=== PATIENT | male | born 1930 | race African-American/Black ===

== ENCOUNTER 2018-01-10 17:29 | Inpatient (IN) | payer MEDICARE, SELFPAY ==
[~2018-01-10 17:29] MED LIST: ISOVUE-370 76%-LOCM 1 ML ONE
[2018-01-10 18:00] LABS: #Eosinphils 0.1 thou/uL (0.0-0.7); #Lymphocytes 1.2 thou/uL (1.20-3.40); #Monocytes 0.8 thou/uL (0.11-0.59); #Neutrophils 9.4 thou/uL (1.40-6.50); %Eosinophils 0.7 % (0.0-10.0); %Lymphocytes 10.6 % (21.0-51.0); %Neutrophils 81.7 % (42.0-75.0); Hemoglobin 11.1 g/dL (14.0-18.0); Mean Corpuscular HGB CONC 30.5 g/dL (32.0-36.0); Mean Corpuscular Volume 91.7 fL (78.0-98.0); Mean Platelet Volume 10.5 fL (7.4-10.4); Platelet Count 306 thou/uL (130-400); RBC Distribution Width 16.8 % (11.5-14.5); Red Blood Cell (RBC) Count 3.96 mill/uL (4.70-6.10); White Blood Cell (WBC) Count 11.5 thou/uL (4.8-10.8)
[2018-01-10 18:06] LABS: INR-International Normal Ratio 1.2; Prothrombin Time 15.5 SEC (12.0-14.7)
[2018-01-10 18:13] LABS: Base Excess-Venous -3.9 mmol/L (0 (+/- 2.5)); Bicarbonate (HCO3v) 20.7 mmol/L (1.0-85.0); CO2 Tension (PvCO2) 35.8 mmHg (41.0-51.0); Calcium, Ionized 1.08 mmol/L (1.12-1.32); O2 Tension (PvO2) 138.3 mmHg (35.0-45.0); Potassium 6.4 mmol/L (3.4-4.7); T. Carbon Dioxide 21.8 mmol/L (1.0-85.0); pH (Venous) 7.371 (7.35-7.45); vO2 Saturation-calc 99.1 % (94-98)
[2018-01-10 18:18] LABS: Actual Bicarbonate (HCO3a) 21.7 mEq/L (22-28); Base Excess (BEa) -2.4 mEq/L (-2.0 to +3.0); CO2 Tension 34.7 mmHg (35.0-45.0); Carboxyhemoglobin (COHb) 0.3 gm% (0.0-3.0); Hemoglobin (Hb) 11.5 g/dL (14.0-18.0); O2 Tension (PaO2) 97.5 mmHg (> 60.0); pH, Arterial 7.41 (7.35-7.45)
[2018-01-10 18:19] LABS: Analyzer IN Cardio ER; Calcium, Ionized 1.15 mmol/L (1.12-1.30); Potassium - ABG Lab 4.34 mmol/L (3.70-5.30); Puncture Site RBA
[2018-01-10 18:20] LABS: ALV-art Gradient 215.625 (0-20)
[2018-01-10 18:39] LABS: Bilirubin Negative (Negative); Blood, Urine Small (Negative); Clarity CLEAR (Clear); Glucose, Urine (Dipstick) Negative (Negative); Leukocyte Moderate (Negative); Nitrite Negative (Negative); Protein, Urine (Dipstick) 30 mg/dL (Neg-Trace)
[2018-01-10] MEDS ORDERED: Propofol 1,000 MG/100 ML VIAL IV ONE (18:45)
[2018-01-10 18:47] LABS: Amphetamine Not Detected (NotDetected); Bacteria/HPF 1+ HPF (None Seen); Barbiturates Screen Not Detected (NotDetected); Benzodiazepine Screen Not Detected (NotDetected); Cocaine Metabolite Screen Not Detected (NotDetected); Hyaline Casts/LPF 0-3 HYALINE CAST LPF (0-3 Hyaline); Medtox Control Line Valid? VALID (VALID); Medtox Reader # READER 1; Methadone Not Detected (NotDetected); Methamphetamine Not Detected (NotDetected); Opiate Screen Detected (NotDetected); Oxycodone Screen Not Detected (NotDetected); Phencyclidine (PCP) Not Detected (NotDetected); Squamous Epithelial None Seen HPF (0-3); THC/Cannabinoid Screen Not Detected (NotDetected); Tricyclic Screen Not Detected (NotDetected); WBC/HPF 21-50 HPF (0-3)
[2018-01-10 19:06] LABS: ALT (SGPT) 21 U/L (8-55); AST (SGOT) 29 U/L (5-34); Acetaminophen Less than 6.0 mcg/mL (10.0-30.0); Albumin 3.3 g/dL (3.4-4.8); Alcohol Less than 10 mg/dL (Less than 10); Alkaline Phosphatase 125 U/L (40-150); Anion Gap 16 mmol/L (10-20); BUN (Urea Nitrogen) 26 mg/dL (8.4-25.7); Bilirubin, Total 0.7 mg/dL (0.2-1.2); Calc. Creatinine Clearance 0 mL/min (70-130); Calcium 8.9 mg/dL (7.8-10.44); Carbon Dioxide 18 mmol/L (23-31); Chloride 104 mmol/L (98-107); Estimated GFR-MDRD 30; Globulin 5.4 g/dL (2.4-3.5); Glucose 107 mg/dL (83-110); Lipase 33 U/L (8-78); Potassium 4.6 mmol/L (3.5-5.1); Protein, Total 8.7 g/dL (5.8-8.1); Salicylate Less than 8.0 mg/dL (15.0-30.0); Sodium 133 mmol/L (136-145)
[2018-01-10 19:10] LABS: CKMB 2.1 ng/mL (0-6.6); Troponin I 0.028 ng/mL (< 0.028)
[2018-01-10 19:14] LABS: Magnesium 1.9 mg/dL (1.6-2.6)
[2018-01-10] MEDS ORDERED: cefTRIAXone\\ROCEPHIN 1 GM VIAL ONE (19:16)
[2018-01-10] MEDS ORDERED: Sodium Chloride 0.9% 100 ML ONE (19:16)
[2018-01-10] MEDS ORDERED: Fentanyl 100 MCG/2 ML VIAL ONE ×2 (19:38→20:37)
[2018-01-10] MEDS ORDERED: Piperacillin/Tazobactam 4.5 GM VIAL ONE (19:38)
--- NOTE | 2018-01-10 19:44 | CT ---
CT BRAIN NONCONTRAST: 01/10/2018 5:40 p.m. HISTORY: An 87-year-old male with global deficits, down for an hour before EMS was called. This stroke alert protocol report was called to the scribe working for Dr. Anaya (who is currently d oing a procedure and is unable to speak on the telephone, at 6:08 p.m. on 01/10/2018). FINDINGS: There is no midline shift or any other mass effect. There is no evidence of acute intracranial hemor rhage, obstructive hydrocephalus, or extraaxial fluid collection. The calvarium is intact. There is diffuse parenchymal volume loss. There are low attenuation areas in the white matter. These are no nspecific, but in a patient of this age, they are probably chronic ischemic white matter changes due to microvascular atherosclerosis. 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 There is fluid in the nasopharyngeal airway. IMPRESSION: 1) No acute intracranial findings. 2) Involutional changes and chronic ischemic white matter changes. 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 CODE CR jn [] POS: MEG
--- NOTE | 2018-01-10 19:47 | RAD ---
CHEST ONE VIEW: History: Altered mental status. Comparison: 11-24-17 FINDINGS: Nasogastric tube is approximately 1 cm above the rena. Nasogastric tube extends to the level of the thoracic esophagus. Advancement is recommended. There is atherosclerosis of the aorta. Left sided tr ansvenous pacemaker terminates over the region of the right atrium and right ventricle. Pulmonary ves sels are within normal limits. Interstitial opacities are felt to be chronic. No pneumothorax or osse ous abnormalities. IMPRESSION: NG tube and ET tube as above. Repositioning is recommended. Results of study discussed with Dr. Frantz Anaya 01-11-16 at 6:15 p.m. POS: PPP
--- NOTE | 2018-01-10 19:50 | CT ---
CT CERVICAL SPINE WITHOUT CONTRAST: HISTORY: The patient was found down. COMPARISON: None. FINDINGS: There is fluid in the aerodigestive tract, likely due to recent endotracheal tube placement. The vis ualized soft tissue neck structures are unremarkable. There is no prevertebral soft tissue swelling. There are varying degrees of central canal stenosis and foraminal narrowing, on the basis of degene rative change. The upper mediastinum and lung apices are unremarkable. There is no craniocervical dissociation. There is degenerative change in the atlantoaxial articulati on with some pannus and soft tissue prominence, likely on the basis of arthritic change. The lateral masses of C1 and C2, as well as the facets, have appropriate articulation. There is multilevel degenerative change with loss of disk space height, osteophyte formation, and end plate irregularity. [id number], cervical spine vertebral body height is maintained. There is no evidence of fracture. Straightening of normal cervical lordosis is presumed to be due to patient po sition, muscle spasm, or a cervical collar. The current study does not assess for ligamentous injury . IMPRESSION: 1. No evidence of cervical spine fracture. 2. Straightening of normal cervical lordosis, as above. If there is concern for ligamentous injury, consider magnetic resonance imaging. POS: PPP
--- NOTE | 2018-01-10 20:18 | RAD ---
CHEST ONE VIEW: History: Evaluate ET tube and nasogastric tube. Comparison: 01-10-18 FINDINGS: Interval repositioning of the endotracheal tube which is now 5 cm above the rena. Nasogastric tube still appears to terminate in the distal thoracic esophagus. IMPRESSION: 1. Appropriate positioning of the endotracheal tube. 2. Nasogastric tube still appears to be thoracic esophagus. POS: PPP
--- NOTE | 2018-01-10 21:08 | CT ---
CT ANGIOGRAM CHEST: HISTORY: Unresponsive patient. COMPARISON: None. TECHNIQUE: A CT angiogram of the chest was performed in the axial plane. Three-dimensional reformatted images a re submitted for interpretation. FINDINGS: Endotracheal tube terminates above the rena. There is nonspecific debris at the rena. The trach ea and central bronchi appear to be patent. The nasogastric tube terminates in the thoracic esophagu s. Heart size is within normal limits. A small amount of pericardial fluid is noted. The thoracic aorta and upper abdominal aorta have a normal caliber. No periaortic fat stranding. The visualized upper solid organs are unremarkable. There is consolidation in the left lower lobe. Dependent atelectatic changes in the right lower lobe . Nonspecific focal opacity, measuring approximately 1 cm, in the right lower lobe has a somewhat ir regular appearance and may represent an area of scar, atelectasis, or even infiltrate. A small nodul e, measuring approximately 1.8 cm in craniocaudal dimension, is a consideration, though is less favor ed, given that this density does abut the minor fissure. Areas of scar and atelectasis are favored. Adequate contrast opacification in the pulmonary arterial system, to the level of the segmental arter ies. No filling defect to suggest thromboembolism. No lytic or blastic lesions in the osseous structures. IMPRESSION: 1. Limited evaluation of the pulmonary arterial system due to the timing of bolus. No evidence of p ulmonary artery embolism to the level of the lobar arteries. 2. Probable areas of atelectasis or infiltrate involving both lower lobes. 3. Endotracheal tube as above. There is debris in the rena, nonspecific. 4. Nasogastric tube as above. Advancement is recommended, such that the nasogastric tube is in the stomach. The results of the study were discussed with Dr. Frantz Anaya on 01/10/2018 at 8:28 p.m. CODE CR POS: PPP
--- NOTE | 2018-01-10 21:23 | CT ---
ABDOMEN CT WITH CONTRAST: PELVIS CT WITH CONTRAST: HISTORY: Unresponsive patient. COMPARISON: None. TECHNIQUE: Post contrast abdomen CT is performed in the axial plane. Coronal reformatted images are submitted. FINDINGS: Changes in the lung bases as described in the CT angiogram report. The liver, spleen, pancreas, and adrenal glands have appropriate enhancement. Subtle hyperdensity in the gallbladder may represent stones or debris. No CT evidence of cholecystit is. Symmetric enhancement of the kidneys. Bilaterally, no obstructive uropathy. No gastrohepatic, retrocrural, or periportal lymphadenopathy. No mesenteric mass, lymphadenopathy, free air, or free fluid. Limited evaluation of the alimentary canal due to lack of oral contrast. The gastric mucosa, the duo denum, and multiple normal caliber small bowel loops are noted. The ileocecal junction is unremarkab le. Normal caliber appendix. The colon is grossly unremarkable. There is some fecal material in th e sigmoid colon and rectum. Findings are nonspecific. Symmetric attenuation of the psoas muscles. PELVIS: A Mondragon catheter is in the urinary bladder. No pelvic mass, lymphadenopathy, free air, or f ree fluid. No lytic or blastic lesions in the osseous structures. IMPRESSION: No acute abnormality in the abdomen or pelvis. The results of the study were discussed with Dr. Frantz Anaya on 01/10/2018 at 8:33 p.m. CODE CR POS: PPP
--- NOTE | 2018-01-10 21:26 | PDOC.FPRHP ---
- History of Present Illness Chief Complaint: AMS, intubated History of Present Illness: Pt unable to provide history, gather from EMS, ER, and medical records Mr. Graham was doing well per family 1 hour before he was found unresponsive outside, after remaining unresponsive for another hour EMS was called and gave him 4mg of narcan and intubation in the field. Scant history from family includes Diabetes. ED Course: Pt has remained unresponsive during his time in ED, O2 sats ok, work up included sepsis, toxins, metabolic, thyroid, PR, cerebral bleed, seizure, glucose, UA, ABG. UDS postive for opiates, some bacteria in urine - Allergies/Adverse Reactions Allergies Allergy/AdvReac Type Severity Reaction Status Date / Time No Known Allergies Allergy Unverified 01/10/18 22:30 - History PMHx:diabetes, CKDIV, PE, hypertension PSHx: R knee replacement, R L amputation, port placed, pacemaker FHx: unknown Social: known - Review of Systems ROS unobtainable: due to mental status - Vital signs BP: [162/94] HR: [116] RR: [14] Tmax: [98.7] Pox: [100]% on [vent] Wt: [58.6kg ] - Physical Exam Constitutional: other (intubated, unresponsive to stimulation) HEENT: normocephalic and atraumatic, conjunctiva clear, MMM, other (pupils pinpoint and non reactive) Neck: supple, trachea midline, no bruits Chest: no lesions Heart: RRR, normal S1/S2, pulses present, no edema Lungs: CTAB, no respiratory distress, other (on ventilator) Abdomen: soft, no masses/distention Musculoskeletal: normal structure, other (dorsiflexion of right foot present) Neurological: other (GCS 5) Skin: no rash/lesions Heme/Lymphatic: no unusual bruising or bleeding, no petechia FMR H&P: Results - Labs Result Diagrams: 01/10/18 17:48 01/10/18 18:39 Lab results: WBC 11.5 thou/uL (4.8-10.8) H 01/10/18 17:48 Hgb 11.1 g/dL (14.0-18.0) L 01/10/18 17:48 Hct 36.3 % (42.0-52.0) L 01/10/18 17:48 MCV 91.7 fL (78.0-98.0) 01/10/18 17:48 Plt Count 306 thou/uL (130-400) 01/10/18 17:48 Neutrophils % 81.7 % (42.0-75.0) H 01/10/18 17:48 ABG pH 7.41 (7.35-7.45) 01/10/18 18:09 ABG pCO2 34.7 mmHg (35.0-45.0) L 01/10/18 18:09 ABG pO2 97.5 mmHg (> 60.0) H 01/10/18 18:09 VBG pCO2 35.8 mmHg (41.0-51.0) L 01/10/18 18:09 VBG pO2 138.3 mmHg (35.0-45.0) H 01/10/18 18:09 Sodium 133 mmol/L (136-145) L 01/10/18 18:39 Potassium 4.6 mmol/L (3.5-5.1) 01/10/18 18:39 Chloride 104 mmol/L (98-107) 01/10/18 18:39 Carbon Dioxide 18 mmol/L (23-31) L 01/10/18 18:39 BUN 26 mg/dL (8.4-25.7) H 01/10/18 18:39 Creatinine 2.13 mg/dL (0.6-1.3) H 01/10/18 18:39 Glucose 107 mg/dL (83-110) 01/10/18 18:39 Lactic Acid 1.6 mmol/L (0.5-2.2) 01/10/18 17:59 Calcium 8.9 mg/dL (7.8-10.44) 01/10/18 18:39 Total Bilirubin 0.7 mg/dL (0.2-1.2) 01/10/18 18:39 AST 29 U/L (5-34) 01/10/18 18:39 ALT 21 U/L (8-55) 01/10/18 18:39 Alkaline Phosphatase 125 U/L (40-150) 01/10/18 18:39 Creatine Kinase 42 U/L (30-200) 01/10/18 18:39 CK-MB (CK-2) 2.1 ng/mL (0-6.6) 01/10/18 18:39 Serum Total Protein 8.7 g/dL (5.8-8.1) H 01/10/18 18:39 Albumin 3.3 g/dL (3.4-4.8) L 01/10/18 18:39 Lipase 33 U/L (8-78) 01/10/18 18:39 Urine Ketones Negative mg/dL (Negative) 01/10/18 18:19 Urine Blood Small (Negative) H 01/10/18 18:19 Urine Nitrite Negative (Negative) 01/10/18 18:19 Ur Leukocyte Esterase Moderate (Negative) H 01/10/18 18:19 Urine RBC 4-6 HPF (0-3) 01/10/18 18:19 Urine WBC 21-50 HPF (0-3) H 01/10/18 18:19 Ur Squamous Epith Cells None Seen HPF (0-3) 01/10/18 18:19 Urine Bacteria 1+ HPF (None Seen) H 01/10/18 18:19 FMR H&P: A/P - Problem List (1) Altered mental status Current Visit: Yes Status: Acute Code(s): R41.82 - ALTERED MENTAL STATUS, UNSPECIFIED (2) Leukocytosis Current Visit: Yes Status: Acute Code(s): D72.829 - ELEVATED WHITE BLOOD CELL COUNT, UNSPECIFIED (3) Bacteria in urine Current Visit: Yes Status: Acute Code(s): R82.71 - BACTERIURIA (4) Opiate drug detected in blood Current Visit: Yes Status: Acute Code(s): R78.1 - FINDING OF OPIATE DRUG IN BLOOD - Plan 1. Altered mental status - unknown cause: brain bleed, metabolic, toxin, trauma, seizure, and PE are unlikely - MRI to evaluate for ischemic stroke - begin ASA and plavix therapy, pt not a candidate for TPN - possibly alread on anticoagulation per previous hospital records - LP to evaluate for infection/inflammation - attempt to obtain more history from family 2. Leukocytosis - likely 2/2 abnormal urine - possibly source for sepsis - IV NS 100 ml/hr 3. Bacteria in urine - possible source of sepsis - IV Vanc and Zosyn 4. Blood test positive for opiates - no response to narcan in the field - IV fluids Disposition/LOS: monitor in CCU, continue to work up for possible causes FMR H&P: Upper Level - Pertinent history Patient unresponsive. No witnesses present. HPI taken from ER records. 87M who was apparently found to be altered for 1 hour and took another hour before family had EMS arrive. Narcan and intubation was performed prior to admission. Patient has lab work up done but with no definitive reason for his AMS. Differential is broad including sepsis, toxins, metabolic, endocrine, PR, seizure. Previous ER visit note PMHx of HTN, hx of PE, DM2, leg amputation 1 month prior( May have been done at [facility]) - Pertinent findings Gen: Intubated HEENT: No trauma noted. Pupil appear to be fixed and non reacative to light. Moist mucosal membrane Resp: CTA. CV: RRR with no apparent m/g/r. There is a port, unclear the significance. GI: No distention Derm: no obvious wound. Skin warm and dry. Neuro: Intubated, not responsive, no withdrawal from pain. - Plan Date/Time: 01/10/182123 I, [Ramone Martinez], have evaluated this patient and agree with findings/plan as outlined by chemist internship resident. Pertinent changes/additions are listed here. 1. AMS - Broad dx at this time. Consider sepsis, seizure, stroke/hypoxia, endocrine at this time - Unlikely DM2 related with normal glucose. CTA done not finding PE. Trops negative. No obvious trauma. - Is currently on broad abx, culture pending. Prolactin mildly elevated. May consider EEG in future. MRI will be done to rule out stroke. Intubated at this time and with good O2 saturation of 100%. Will obtain morning cortisol and TSH. 2. Sepsis - WBC elevated, tachycardia, possible urine infection - UA shows wbc 21-50, 1+ bacteria, moderate leukocyte esterase. Continue vanc/ zosyn. Await culture. 3. DM2 - At this time, will start SSI. Unknown his home medication. Will try to contact family in morning. 4. 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 Unclear if this is chronic vs acute. - Reevaluate with morning lab. Current receiving IV fluid 5. Normocytic anemia - Mild anemia. Will monitor. Unlikely to be etiology of his AMS 6. UDS with opiate - Likely from intubation in field. No obvious toxins.
[2018-01-10] MEDS ORDERED: Ondansetron ODT 4 MG TAB SL PRN (22:31)
[2018-01-10] MEDS ORDERED: Ondansetron HCl/PF 4 MG/2 ML Vial IVP PRN (22:31)
[2018-01-10] MEDS ORDERED: Acetaminophen 325 MG TAB PO PRN (22:31)
[2018-01-10] MEDS ORDERED: DISCONTINUE PREVIOUS NARCOTIC PAIN MEDICATIONS AND BENZODIAZEPINES FS SCH ×2 (22:32→23:19)
[2018-01-10] MEDS ORDERED: Lorazepam 2 MG/ML VIAL SLOW IVP PRN ×2 (22:32→23:19)
[2018-01-10] MEDS ORDERED: Propofol BOLUS 1,000 MG/100 ML VIAL IV PRN ×2 (22:32→23:19)
[2018-01-10] MEDS ORDERED: fentaNYL Citrate/PF 2,000 MCG in Sodium Chloride 0.9% 60 ML IV SCH ×2 (22:32→23:19)
[2018-01-10] MEDS ORDERED: Propofol 1,000 MG/100 ML VIAL IV PRN ×2 (22:32→23:19)
[2018-01-10] MEDS ORDERED: Fentanyl BOLUS 250 ML IVPB PRN ×2 (22:32→23:19)
[2018-01-10] MEDS ORDERED: Labetalol HCl 100 MG/20 ML VIAL SLOW IVP PRN (22:34)
[2018-01-10 22:45] VITALS: BMI 19.8
[2018-01-10] MEDS ORDERED: [UNRECOGNIZED DRUG - REMARK] IVPB PRN (23:18)
[2018-01-10] MEDS: Sodium Chloride 0.9% 1,000 ML IV SCH (23:30)
[2018-01-11] MEDS ORDERED: Dextrose 5% in Water 1,000 ML IV PRN (00:28)
[2018-01-11] MEDS ORDERED: Dextrose 50% Abboject 50 ML SYRINGE SLOW IVP PRN (00:28)
[2018-01-11] MEDS ORDERED: HumaLOG 300 UNITS/3 ML VIAL SC PRN (00:28)
--- NOTE | 2018-01-11 00:36 | RAD ---
RADIOGRAPH ABDOMEN ONE VIEW: 01/10/2018 11:17 p.m. HISTORY: Orogastric tube placement in an 87-year-old male. FINDINGS: Esophagogastric tube distal tip is in the left upper quadrant, directed laterally. IMPRESSION: Esophagogastric tube is in the left upper quadrant, presumably in the proximal body of the stomach. POS: KYRA
[2018-01-11] MEDS: Piperacillin/Tazobactam 2.25 GM in Sodium Chloride 0.9% 100 ML IVPB SCH ×4 (02:32→21:44)
[2018-01-11 05:15] LABS: #Lymphocytes 1.5 thou/uL (1.20-3.40); #Monocytes 1.2 thou/uL (0.11-0.59); #Neutrophils 9.9 thou/uL (1.40-6.50); %Basophils 0.2 % (0.0-1.0); %Eosinophils 0.3 % (0.0-10.0); %Lymphocytes 11.6 % (21.0-51.0); %Monocytes 9.5 % (0.0-10.0); %Neutrophils 78.4 % (42.0-75.0); Hemoglobin 9.2 g/dL (14.0-18.0); Mean Corpuscular HGB CONC 29.5 g/dL (32.0-36.0); Mean Corpuscular Hemoglobin 27.5 pg (27.0-31.0); Mean Corpuscular Volume 93.1 fL (78.0-98.0); Platelet Count 254 thou/uL (130-400); RBC Distribution Width 16.4 % (11.5-14.5); Red Blood Cell (RBC) Count 3.33 mill/uL (4.70-6.10); White Blood Cell (WBC) Count 12.6 thou/uL (4.8-10.8)
[2018-01-11 05:40] LABS: ALT (SGPT) 11 U/L (8-55); AST (SGOT) 23 U/L (5-34); Albumin 2.6 g/dL (3.4-4.8); Alkaline Phosphatase 86 U/L (40-150); Anion Gap 13 mmol/L (10-20); BUN (Urea Nitrogen) 24 mg/dL (8.4-25.7); Bilirubin, Total 0.3 mg/dL (0.2-1.2); Calc. Creatinine Clearance 25 mL/min (70-130); Calcium 7.9 mg/dL (7.8-10.44); Carbon Dioxide 15 mmol/L (23-31); Chloride 112 mmol/L (98-107); Estimated GFR-MDRD 44; Globulin 3.9 g/dL (2.4-3.5); Glucose 90 mg/dL (83-110); Potassium 4.4 mmol/L (3.5-5.1); Protein, Total 6.5 g/dL (5.8-8.1); Sodium 136 mmol/L (136-145)
--- NOTE | 2018-01-11 06:10 | PDOC.FM ---
- Subjective Subjective: Patient is currently intubated and sedated. Patient shakes his head "No" to question of in any pain. Patient opens his eye to voice commands. Patient does not follow any other commands. Nursing staff reports that when propofol is decreased he becomes agitated, bites on his ET, and fights the ventilator. No family is present for this interview and no other history is able to be obtained. - Objective Vital Signs & Weight: Vital Signs (12 hours) Temp Resp Pulse Ox 01/11/18 04:00 98.3 F 15 01/11/18 00:00 98.4 F 15 01/10/18 22:20 16 100 Weight Weight 59.3 kg Most Recent Monitor Data Heart Rate from ECG 89 NIBP 128/74 NIBP BP-Mean 92 Respiration from ECG 14 SpO2 96 I&O: 01/09/18 01/10/18 01/11/18 06:59 06:59 06:59 Intake Total 2462 Output Total 375 Balance 7 Result Diagrams: 01/11/18 04:37 01/11/18 04:37 Phys Exam - Physical Examination HEENT: moist MMs ET tube in place. Neck: no nodes Respiratory: no wheezing, clear to auscultation bilateral Cardiovascular: RRR, no significant murmur Gastrointestinal: soft, non-tender, no distention, positive bowel sounds Musculoskeletal: no edema pressure ulcers to L heel. Right AKA Deviation from normal: Intubated and sedated Skin: no rash Dx/Plan (1) Encephalopathy Code(s): G93.40 - ENCEPHALOPATHY, UNSPECIFIED Status: Acute (2) Bacteria in urine Code(s): R82.71 - BACTERIURIA Status: Acute (3) Leukocytosis Code(s): D72.829 - ELEVATED WHITE BLOOD CELL COUNT, UNSPECIFIED Status: Acute (4) Opiate drug detected in blood Code(s): R78.1 - FINDING OF OPIATE DRUG IN BLOOD Status: Acute - Plan Plan: 1. Encephalopathy - unknown cause at this time: brain bleed, metabolic, toxin, trauma, seizure, and PE are unlikely - MRI to evaluate for ischemic stroke today - begin ASA and plavix therapy - Consider LP to evaluate for infection/inflammation - Unremarkable CT brain, CTA chest, CT abdomen/Pelvis - attempt to obtain more history from family 2. Leukocytosis - likely 2/2 abnormal urine - possibly source for sepsis - IV NS 100 ml/hr - Blood and urine cultures pending 3. Bacteria in urine - possible source of sepsis - IV Vanc and Zosyn - Await cultures 4. Blood test positive for opiates - no response to narcan in the field - IV fluids Disposition: Guarded, Will continue to gather more history and continue current plan of care. Patient is to be extubated this AM per Dr. Montero's recommendations.
[2018-01-11 07:13] LABS: Actual Bicarbonate (HCO3a) 16.7 mEq/L (22-28); Base Excess (BEa) -7.7 mEq/L (-2.0 to +3.0); CO2 Tension 30.2 mmHg (35.0-45.0); Calcium, Ionized 1.12 mmol/L (1.12-1.30); Carboxyhemoglobin (COHb) 0.3 gm% (0.0-3.0); Hemoglobin (Hb) 10.1 g/dL (14.0-18.0); O2 Tension (PaO2) 144.6 mmHg (> 60.0); Potassium - ABG Lab 4.15 mmol/L (3.70-5.30); pH, Arterial 7.36 (7.35-7.45)
[2018-01-11] MEDS ORDERED: DC Sedation Protocol FS ONE (07:51)
--- NOTE | 2018-01-11 08:56 | CON ---
DATE OF CONSULTATION: 01/11/2018 Forty-five minutes critical care time. REASON FOR CONSULTATION: Patient is intubated. HISTORY OF PRESENT ILLNESS: The patient is an 87-year-old male, who apparently came in last night wi th decreasing responsiveness. He was intubated for airway protection. This morning, he is awake, al ert, and able to follow commands for me without limitation. There is no family here for history. Fr om what I can elicit looking at the chart, family found him with decreasing consciousness at home ear lier today. PAST MEDICAL HISTORY: 1. Diabetes mellitus. 2. Pulmonary embolism. 3. Hypertension. 4. Chronic kidney disease, stage 4. PAST SURGICAL HISTORY: 1. Right knee replacement. 2. Right [id number] amputation. 3. Pacemaker placement. FAMILY MEDICAL HISTORY: Unknown. SOCIAL HISTORY: Not known if he smokes or drinks. REVIEW OF SYSTEMS: Not obtainable at this time. PHYSICAL EXAMINATION: VITAL SIGNS: Pulse 97, blood pressure 160/91, O2 sat 92%, respiratory rate 12. GENERAL: He is awake, follows commands without limitation. Moves all 3 extremities. HEENT: Unremarkable. NECK: No JVD. LUNGS: Clear. CARDIOVASCULAR: S1 and S2, regular. ABDOMEN: Soft, nontender. EXTREMITIES: Right [id number] amputation. NEUROLOGIC EXAM: Moves left leg, both arms to commands. LABORATORY DATA: White blood cell count 12.6, hematocrit 31, platelet count 254 with 78% neutrophils . INR 1.2, pH 7.36, pCO2 of 30, pO2 of 144 that is on SIMV rate 14 -500, PEEP 5, pressure supp ort 10, FiO2 40%. Sodium 136, potassium 4.4, chloride 112, CO2 of 15, BUN 24, creatinine 1.7, glucos e 90. Prolactin 29.2. Cortisol 7.3. Urinalysis showed 21-50 white blood cells. Tox screen detecte d opioids. Chest x-ray demonstrates no acute mass, effusion, or infiltrate. ET tube is in good posi tion. There is a pacemaker present in the left chest. ASSESSMENT: Encephalopathy, which appears to be improved. This may be secondary to urosepsis or cou ld perhaps be from ingestion of opioids. Right now, we do not know too much about his history that i s helpful in terms of his management. RECOMMENDATIONS: 1. He is placed on CPAP trial. He appears appropriate for extubation. I would hold all sedation. Further evaluation after he is extubated and he could talk to us. 2. Agree with empiric antibiotics.
[2018-01-11] MEDS ORDERED: Enoxaparin Sodium 30 MG/0.3 ML SYRINGE SC SCH (09:00)
[2018-01-11] MEDS ORDERED: VANCOMYCIN HCL IVPB SCH (09:00)
[2018-01-11] MEDS ORDERED: SODIUM CHLORIDE 0.9% IVPB SCH (09:00)
[2018-01-11] MEDS ORDERED: Aspirin 81 mg Enteric Coated Tablet PO SCH (09:00)
[2018-01-11] MEDS ORDERED: Clopidogrel Bisulfate 75 MG TAB PO SCH (09:00)
[2018-01-11] MEDS: Sodium Chloride 0.9% 1,000 ML IV SCH ×2 (09:19→21:44)
--- NOTE | 2018-01-11 10:55 | PDOC.EVN ---
Event Note - Event Note Event Note: Patient was extubated earlier this AM. Patient seemed confused and was A&O x1. Patient's son was contacted and he came to the hospital. Patient's son states that his father was playing checkers on a street corner with his friends. It is an activity that he normally does to get out of the house. Around 3:30 PM he attempted to pickler helper his dad and bring him home and his friends stated that he had been sleeping for some time. He attempted to arouse the patient and couldn' t. He was subsequently taken to the ED in [place] and intubated. After further questioning a medication reconciliation and some health history was obtained from the son. Medication reconciliation will be completed by nursing staff. Patient's medical history includes BPH, Sick Sinus Syndrome, Recent right AKA, and HTN. Call was also placed to his PCP, Dr. Ga, and he was able to provide limited history. Apparently he has only seen this patient one time during a [facility]. The patient primarily has been living with his son at home. Patient has been stabilized and his overall condition improved. He will be transferred to the medical floor and will await culture results.
--- NOTE | 2018-01-11 11:32 | PRG ---
DATE OF SERVICE: 01/11/2018 This is an addendum o the note of Dr. Vlad Saunders. Mr. Graham was admitted unresponsive and had subsequently been intubated. He is now extubated. He is thoroughly confused, but otherwise demonstrating no distress. VITAL SIGNS: He is afebrile with a blood pressure 170/80. His oxygen saturation is between 100 and 80%. He has at least laboratory evidence of a possible UTI with moderate leukocyte esterase, 21-50 white c ells per high power field. This was presumably the cause of his altered mental status and obtunded s briggs earlier. He appears this morning to be confused, slightly delirious, but otherwise awake and al ert. We will continue treating his urinary tract infection.
[2018-01-11] MEDS ORDERED: Simvastatin 40 MG TAB PO SCH (21:00)
[2018-01-11] MEDS ORDERED: Vancomycin HCl 500 MG in Sodium Chloride 0.9% 100 ML IVPB SCH (21:00)
[2018-01-11] MEDS: Atorvastatin Calcium 40 MG TAB PO SCH (21:44)
[2018-01-12] MEDS: Piperacillin/Tazobactam 2.25 GM in Sodium Chloride 0.9% 100 ML IVPB SCH ×3 (03:58→16:42)
--- NOTE | 2018-01-12 06:32 | PDOC.FM ---
- Subjective Subjective: 87 yo male seen at the bedside this AM. He is A&O x 3 today. He states that he has some pain in his joints. He denies chest pain, sob, n/v/d, fevers, or chills. He states he doesn't think it is safe for him to go home. He is willing to go to rehab to build his strength. He has no other complaints today. - Objective Vital Signs & Weight: Vital Signs (12 hours) Temp Pulse Resp BP Pulse Ox 01/12/18 04:00 100.2 F H 93 20 166/81 H 93 L 01/12/18 02:41 94 L 01/11/18 19:48 94 L Weight Admit Weight 58.967 kg Weight 59.3 kg Most Recent Monitor Data Heart Rate from ECG 79 NIBP 139/101 NIBP BP-Mean 113 Respiration from ECG 14 SpO2 86 I&O: 01/10/18 01/11/18 01/12/18 06:59 06:59 06:59 Intake Total 2462 2100 Output Total 375 2640 Balance 2086 -540 Result Diagrams: 01/11/18 04:37 01/11/18 04:37 <Vlad Saunders - Last Filed: 01/12/18 06:37> - Objective Vital Signs & Weight: Vital Signs (12 hours) Temp Pulse Pulse Pulse Resp BP BP 01/13/18 12:10 43 L 51 L 142/65 H 160/70 H 01/13/18 11:27 99.2 F 84 18 01/13/18 08:00 01/13/18 07:32 99.0 F 76 18 01/13/18 04:00 99.3 F 83 18 BP Pulse Ox Pulse Ox Pulse Ox 01/13/18 12:10 96 95 01/13/18 11:27 142/65 H 95 01/13/18 08:00 95 01/13/18 07:32 135/60 96 01/13/18 04:00 135/62 95 Weight Admit Weight 58.967 kg Weight 59.3 kg Most Recent Monitor Data Heart Rate from ECG 79 NIBP 139/101 NIBP BP-Mean 113 Respiration from ECG 14 SpO2 86 I&O: 01/12/18 01/13/18 01/14/18 06:59 06:59 06:59 Intake Total 2100 2171 Output Total 2640 3030 Balance -496 -365 Result Diagrams: 01/12/18 09:33 01/11/18 04:37 <GibsonJoseph Chance - Last Filed: 01/13/18 13:25> Phys Exam - Physical Examination Constitutional: NAD HEENT: moist MMs Neck: no nodes Respiratory: no wheezing, clear to auscultation bilateral Cardiovascular: RRR, no significant murmur Gastrointestinal: soft, non-tender, no distention, positive bowel sounds Right AKA Psychiatric: normal affect Skin: no rash <Vlad Saunders - Last Filed: 01/12/18 06:37> Dx/Plan (1) Encephalopathy Code(s): G93.40 - ENCEPHALOPATHY, UNSPECIFIED Status: Acute (2) Bacteria in urine Code(s): R82.71 - BACTERIURIA Status: Acute (3) Leukocytosis Code(s): D72.829 - ELEVATED WHITE BLOOD CELL COUNT, UNSPECIFIED Status: Acute (4) Opiate drug detected in blood Code(s): R78.1 - FINDING OF OPIATE DRUG IN BLOOD Status: Acute (5) Physical deconditioning Code(s): R53.81 - OTHER MALAISE Status: Acute (6) Ventricular arrhythmia Code(s): I49.9 - CARDIAC ARRHYTHMIA, UNSPECIFIED Status: Acute - Plan Plan: 1. 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 - Unremarkable CT brain, CTA chest, CT abdomen/Pelvis - attempt to obtain more history from family 2. Leukocytosis - likely 2/2 abnormal urine - possibly source for sepsis - IV NS 100 ml/hr - Blood culture positive 1/2 of skin mumtaz, likely contaminant - Urine culture mixed mumtaz, awaiting pathogen isolate 3. Bacteria in urine - possible source of sepsis - IV Vanc and Zosyn - Await cultures 4. 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 Physical deconditioning - Patient likely would not be safe to care for himself - Will put in rehab consultation - PT/OT 6. Ventricular arrhythmia - Unclear history - Restarted home diltiazem - Continue tele monitoring. Disposition: Stable, Will await culture results and get rehab consultation. <Vlad Saunders - Last Filed: 01/12/18 06:37> Attending Addendum - Attending Addendum Date/Time: 01/13/18 6770 I personally evaluated the patient and discussed the management with Dr. Saunders. I agree with the History, Examination, Assessment and Plan documented above with any addition or exceptions noted below. <Joseph Arreaga - Last Filed: 01/13/18 13:25>
[2018-01-12] MEDS: Sodium Chloride 0.9% 1,000 ML IV SCH ×2 (08:55→16:50)
[2018-01-12] MEDS: Tamsulosin HCl 0.4 MG CAP PO SCH (08:57)
[2018-01-12] MEDS: Apixaban 2.5 MG TAB PO SCH ×2 (08:57→21:24)
[2018-01-12] MEDS: Gabapentin 300 MG CAP PO SCH ×2 (08:57→21:24)
[2018-01-12] MEDS ORDERED: Non-Formulary Item 1 EACH (Apixaban [Eliquis] 2.5 MG) PO SCH (09:00)
[2018-01-12] MEDS ORDERED: Prevnar 13-Val Conj/PF 0.5 ML SYRINGE IM ONE (09:00)
--- NOTE | 2018-01-12 09:05 | PRG ---
DATE OF SERVICE: 01/12/2018 The patient is doing better today. He is awake and alert, does not appear to have any issues. PHYSICAL EXAMINATION: VITAL SIGNS: His temperature is 100.2, pulse 93, respirations 20, O2 sat 93%, blood pressure 166/81 . HEENT: Unremarkable. NECK: Without adenopathy or JVD. LUNGS: Clear without wheezing. CARDIAC: S1 and S2 regular. ABDOMEN: Soft. EXTREMITIES: No edema. LABORATORY DATA: White blood cell count 12.6, hematocrit 31, platelet count 254 - that CBC was from yesterday. He has had no labs today. Culture is growing gram positive cocci, gram negative rods fro m one blood culture. ASSESSMENT: Status post acute respiratory failure, which I think is probably due to encephalopathy f rom excess ingestion of opioids. He does not look overtly septic to me. RECOMMENDATION: 1. I would discontinue all narcotics in this patient. He may have some underlying dementia and just cannot remember how much he is taking. 2. He is continue with empiric antibiotics until cultures have resulted.
[2018-01-12 09:50] LABS: Hemoglobin 9.6 g/dL (14.0-18.0); Mean Corpuscular HGB CONC 29.7 g/dL (32.0-36.0); Mean Corpuscular Hemoglobin 27.3 pg (27.0-31.0); Mean Corpuscular Volume 91.8 fL (78.0-98.0); Mean Platelet Volume 9.5 fL (7.4-10.4); Platelet Count 220 thou/uL (130-400); RBC Distribution Width 16.4 % (11.5-14.5); Red Blood Cell (RBC) Count 3.51 mill/uL (4.70-6.10); White Blood Cell (WBC) Count 11.3 thou/uL (4.8-10.8)
[2018-01-12 09:52] LABS: #Eosinphils 0.1 thou/uL (0.0-0.7); #Lymphocytes 1.7 thou/uL (1.20-3.40); #Monocytes 0.9 thou/uL (0.11-0.59); #Neutrophils 8.6 thou/uL (1.40-6.50); %Basophils 0.3 % (0.0-1.0); %Eosinophils 0.9 % (0.0-10.0); %Lymphocytes 14.7 % (21.0-51.0); %Monocytes 8.1 % (0.0-10.0)
[2018-01-12 10:13] LABS: Acanthocytes SLIGHT = 1-5 cells (100X) (None Seen); Burr Cells SLIGHT = 2-5 cells (100X) (0-1/hpf); MDiff Complete? YES; PLT Morphology Comment Appears Adequate; Polychromasia SLIGHT = 2-3 cells (100X) (0-2/hpf)
[2018-01-12] MEDS: Diltiazem HCl SR 60 mg Capsule PO SCH ×2 (10:13→21:24)
--- NOTE | 2018-01-12 14:53 | RAD ---
MODIFIED BARIUM SWALLOW: HISTORY: Dysphagia, R13.10. Feeding difficulties, R63.3. TECHNIQUE: Various consistencies of barium sulfate were given to the patient. Spot images were obtained. RADIATION DOSIMETRY: Fluoroscopy 2.4 minutes. DAP 0.72 Gy per cm2. FINDINGS: All consistency foods were ingested by the patient. The patient had difficulty with the oral phase o f the exam, with a soft, mechanical cookie, which was soaked in liquid. The patient had no difficult y with thin liquid, nectar thick liquid, or pudding consistencies. In addition, honey-thick liquid w as also ingested without difficulty. No evidence of aspiration seen. IMPRESSION: No evidence of aspiration seen with any ingested materials. POS: [facility]
[2018-01-12 20:33] LABS: Vancomycin, Trough 13.5 ug/mL
[2018-01-12] MEDS: Atorvastatin Calcium 40 MG TAB PO SCH (21:24)
[2018-01-12] MEDS: Sulfameth/Trimethoprim DS 800-160mg TAB PO SCH (21:24)
[2018-01-13] MEDS: Sodium Chloride 0.9% 1,000 ML IV SCH ×2 (02:47→13:00)
--- NOTE | 2018-01-13 05:55 | PDOC.FM ---
- Subjective Subjective: Only complaint this AM is about pureed food. Reports not being on O2 at home prior to admission. Denies pain, SOB, chest pain. - Objective MAR Reviewed: Yes Vital Signs & Weight: Vital Signs (12 hours) Temp Pulse Resp BP Pulse Ox 01/13/18 04:00 99.3 F 83 18 135/62 95 01/12/18 19:22 97 Weight Admit Weight 58.967 kg Weight 59.3 kg Most Recent Monitor Data Heart Rate from ECG 79 NIBP 139/101 NIBP BP-Mean 113 Respiration from ECG 14 SpO2 86 I&O: 01/11/18 01/12/18 01/13/18 06:59 06:59 06:59 Intake Total 2462 2100 971 Output Total 375 2640 1980 Balance 4884 -134 -5425 Result Diagrams: 01/12/18 09:33 01/11/18 04:37 <Ana Fuller - Last Filed: 01/13/18 09:52> - Objective Vital Signs & Weight: Vital Signs (12 hours) Temp Pulse Pulse Pulse Resp BP BP 01/13/18 12:10 43 L 51 L 142/65 H 160/70 H 01/13/18 11:27 99.2 F 84 18 01/13/18 08:00 01/13/18 07:32 99.0 F 76 18 01/13/18 04:00 99.3 F 83 18 BP Pulse Ox Pulse Ox Pulse Ox 01/13/18 12:10 96 95 01/13/18 11:27 142/65 H 95 01/13/18 08:00 95 01/13/18 07:32 135/60 96 01/13/18 04:00 135/62 95 Weight Admit Weight 58.967 kg Weight 59.3 kg Most Recent Monitor Data Heart Rate from ECG 79 NIBP 139/101 NIBP BP-Mean 113 Respiration from ECG 14 SpO2 86 I&O: 01/12/18 01/13/18 01/14/18 06:59 06:59 06:59 Intake Total 2100 2171 Output Total 2640 3030 Balance -439 -917 Result Diagrams: 01/12/18 09:33 01/11/18 04:37 <Jennie Velázquez - Last Filed: 01/13/18 15:16> Phys Exam - Physical Examination Constitutional: NAD Respiratory: clear to auscultation bilateral Cardiovascular: RRR, no significant murmur Gastrointestinal: soft, non-tender, positive bowel sounds Musculoskeletal: no edema Psychiatric: normal affect, A&O x 3 <Ana Fuller - Last Filed: 01/13/18 09:52> Dx/Plan (1) Encephalopathy Code(s): G93.40 - ENCEPHALOPATHY, UNSPECIFIED Status: Acute (2) Altered mental status Code(s): R41.82 - ALTERED MENTAL STATUS, UNSPECIFIED Status: Acute (3) Bacteria in urine Code(s): R82.71 - BACTERIURIA Status: Acute (4) Leukocytosis Code(s): D72.829 - ELEVATED WHITE BLOOD CELL COUNT, UNSPECIFIED Status: Acute (5) Opiate drug detected in blood Code(s): R78.1 - FINDING OF OPIATE DRUG IN BLOOD Status: Acute (6) Physical deconditioning Code(s): R53.81 - OTHER MALAISE Status: Acute (7) Ventricular arrhythmia Code(s): I49.9 - CARDIAC ARRHYTHMIA, UNSPECIFIED Status: Acute - Plan Plan: Encephalopathy, Resolved - 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 - Unremarkable CT brain, CTA chest, CT abdomen/Pelvis Leukocytosis - likely 2/2 abnormal urine - IV NS 100 ml/hr - Blood culture positive 1/2 of skin mumtaz, likely contaminant - Urine culture mixed mumtaz - Continue Bactrim Bacteria in urine - Possible source of sepsis and encephalopathy - Continue Bactrim Dysphagia - Difficulty with oropharyngeal phase of the swallow - Barium Swallow study showed no signs of aspiration - Speech Therapy recommends [place] thick liquids and Puree. Follow the rest of recommendations. 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 Fuller. I agree with the History, Examination, Assessment and Plan documented above with any addition or exceptions noted below. Patient's family is planning to take the patient home with home health. He is reportedly back to baseline. No events on tele monitor. <Jennie Velázquez - Last Filed: 01/13/18 15:16>
--- NOTE | 2018-01-13 08:58 | PRG ---
DATE OF SERVICE: 01/13/2018 The patient is doing really well, had no complaints. PHYSICAL EXAMINATION: VITAL SIGNS: Temperature 98.9, pulse 76, respirations 18, O2 sat 96% on 2 liters, blood pressure 135 /60. HEENT: Unremarkable. NECK: No JVD. LUNGS: Clear anteriorly. CARDIOVASCULAR: S1 and S2 regular. ABDOMEN: Soft. EXTREMITIES: No edema. ASSESSMENT: Status post acute respiratory failure related to encephalopathy, which I think is likely from excess narcotic use at home. RECOMMENDATIONS: I would go ahead and switch him over to oral antibiotics and let him go home. I wo uld make it clear that he is to stop all narcotic medication. There is no further Pulmonary Critical Care recommendations. I will sign off.
[2018-01-13] MEDS: Gabapentin 300 MG CAP PO SCH (09:26)
[2018-01-13] MEDS: Sulfameth/Trimethoprim DS 800-160mg TAB PO SCH (09:26)
[2018-01-13] MEDS: Diltiazem HCl SR 60 mg Capsule PO SCH (09:26)
[2018-01-13] MEDS: Apixaban 2.5 MG TAB PO SCH (09:26)
[2018-01-13] MEDS: Tamsulosin HCl 0.4 MG CAP PO SCH (09:26)
[2018-01-13 11:31] VITALS: BP 142/65; TEMP 99.2
== END 2018-01-13 17:23 | disposition home or self-care (01) | DRG 871 ==
LOC: ERS 17:29 → CCU 22:36 → 2NO 01-11 16:24
PROVIDERS: ADMIT Family Medicine; ATTEND Family Medicine
PROC: 5A1935Z Respiratory Ventilation, Less than 24 Consecutive Hours (ICD-10-PCS; principal; 2018-01-10)
DX: A41.9 Sepsis, unspecified organism (principal); G93.40 Encephalopathy, unspecified; J96.00 Acute respiratory failure, unspecified whether with hypoxia or hypercapnia; N18.4 Chronic kidney disease, stage 4 (severe); I47.2 Ventricular tachycardia; N39.0 Urinary tract infection, site not specified; E11.22 Type 2 diabetes mellitus with diabetic chronic kidney disease; I12.9 Hypertensive chronic kidney disease with stage 1 through stage 4 chronic kidney disease, or unspecified chronic kidney disease; R78.1 Finding of opiate drug in blood; N40.0 Benign prostatic hyperplasia without lower urinary tract symptoms; I49.5 Sick sinus syndrome; R82.71 Bacteriuria; D72.829 Elevated white blood cell count, unspecified; R13.10 Dysphagia, unspecified; Z86.711 Personal history of pulmonary embolism; Z89.611 Acquired absence of right leg above knee; Z96.651 Presence of right artificial knee joint; Z95.0 Presence of cardiac pacemaker
CPT/HCPCS: 36415; 36416; 70450; 70498; 71045; 71275; 72125; 74018; 74177; 74230; 80053; 80202; 80306; 80307; 81001; 82330; 82533; 82550; 82553; 82803; 82805; 83605; 83690; 83735; 84146; 84443; 84484; 85025; 85610; 87040; 87077; 87086; 87149; 93005; 94002; 94003; 96365; 96366; 96367; 96375; 99292; G8981-GP-CM; G8982-GP-CK; G8987-GO-CM; G8988-GO-CK; G8996-GN-CL; G8996-GN-CM; G8997-GN-CJ; J0696; J1650; J2543; J2704; J3010; J3370; J7050

== ENCOUNTER 2018-12-27 12:41 | Outpatient (CLI) | payer MEDICARE ==
--- NOTE | 2018-12-27 14:01 | CT ---
CT OF CHEST WITHOUT CONTRAST: 12/27/18 INDICATION: Lung nodule. Reference made to 01/10/18 CT chest exam. FINDINGS: There are bilateral ground glass, nodular subpleural opacities as well as interstitial and curvilinea r densities of the pulmonary parenchyma bilaterally, predominantly involving the lower lobes. There i s no effusion or pneumothorax. No evidence of pulmonary mass. Area of prior nodular density abutting the right major fissure, laterally, is less confluent, now demonstrating a curvilinear configuration favoring an area of residual scar/atelectasis. Granulomatous calcification is redemonstrated. Inciden yung note of high density of the gallbladder lumen which may relate to cholelithiasis, incompletely vi sualized on the basis of this exam. IMPRESSION: Prior nodular density abutting the right major fissure is less confluent and now demonstrates a retic ulonodular morphology demonstrating the appearance of scar and/or atelectasis. Where it previously me asured craniocaudally at 18 mm, the residual focal component at this site is 5 mm craniocaudal demon strating marked interval decrement in volume. Continued one year follow-up may be obtained as a conse rvative measure as clinically necessary. POS: [facility]
== END 2018-12-27 12:42 | disposition home or self-care (01) ==
LOC: BICCT 12:41
PROVIDERS: ATTEND Internal Medicine Critical Care Medicine
DX: R91.1 Solitary pulmonary nodule (principal)
CPT/HCPCS: 71250; 82565